=== PATIENT | male | born 1990 | race African-American/Black ===

== ENCOUNTER 2016-07-14 07:23 | Emergency (ER) | payer OTHER ==
[~2016-07-14] VITALS: Ht 185.4 cm; Wt 132.4 kg
[~2016-07-14 07:23] MED LIST: DELTASONE20 M1 PO; FLONASE16 G1 BOTH NARES; ULTRAM50 MG PO
[2016-07-14] MEDS ORDERED: SOOTHING CARE28 GM TP (08:08)
[2016-07-14 08:23] VITALS: BP 142/88
== END 2016-07-14 08:24 | disposition home or self-care (01) ==
LOC: EME 07:23
DX: L25.8 Unspecified contact dermatitis due to other agents (principal); L29.9 Pruritus, unspecified; F17.200 Nicotine dependence, unspecified, uncomplicated; Y99.0 Civilian activity done for income or pay; Z71.6 Tobacco abuse counseling
CPT/HCPCS: 99281; 99284